=== PATIENT | male | born 1950 | race Caucasian/White ===

== ENCOUNTER → 2017-11-20 07:01 | Outpatient (CLI) | payer MEDICARE, SELFPAY ==
[2017-11-20 07:29] LABS: Add Manual Diff / Slide Review NO; Basophils Percent Auto 0.4 % (0-2); Eosinophils Percent Auto 2.5 % (2-4); Hematocrit 40.5 % (41-53); Hemoglobin 13.8 g/dL (13.5-17.5); Lymphocytes Percent Auto 18.6 % (25-40); Mean Corpuscular HGB Conc 34.2 % (30-36); Mean Corpuscular Hemoglobin 28.3 PG (26-34); Mean Corpuscular Volume 82.8 fL (80-100); Neutrophils Absolute Auto 2400 /uL (3000-5900); Neutrophils Percent Auto 67.5 % (50-75); Red Blood Cell Count 4.89 X10^6/uL (4.5-5.9); White Blood Cell Count 3.6 X10^3/uL (4.5-11.0)
[2017-11-20 07:41] LABS: Platelet Count 69 X10^3/uL (150-400)
[2017-11-20 08:08] LABS: Alanine Aminotransferase 30 IU/L (21-72); Albumin 4.2 g/dL (3.5-5.0); Albumin Globulin Ratio 1.8 (1.0-2.8); Alkaline Phosphatase 45 U/L (38-126); Aspartate Aminotransferase 27 IU/L (17-59); BUN Creatinine Ratio 25.8 (6-22); Bilirubin Total 0.7 mg/dL (0.2-1.3); Blood Urea Nitrogen 31 mg/dL (9-20); Calcium 9.8 mg/dL (8.4-10.2); Carbon Dioxide 30 mmol/L (22-32); Chloride 101 mmol/L (98-107); Cholesterol 127 mg/dL (140-199); Estimated Glomerular Filt Rate > 60.0 mL/min (>60); Globulin 2.4 g/dL (1.7-4.1); Glucose 116 mg/dL (80-110); HDL Cholesterol 36 mg/dL (40-60); HEMOLYSIS < 15 (0-50); LDL Cholesterol Calculated 41 mg/dL (<100); Potassium 4.7 mmol/L (3.4-5.1); Sodium 141 mmol/L (137-145); Total Protein 6.6 g/dL (6.3-8.2); Triglycerides 250 mg/dL (35-150)
== END ==
PROVIDERS: Family Provider Family Medicine; PCP Family Medicine; Visit Provider Family Medicine
DX: I10 Essential (primary) hypertension (principal); E11.9 Type 2 diabetes mellitus without complications; Z79.4 Long term (current) use of insulin; E78.00 Pure hypercholesterolemia, unspecified
CPT/HCPCS: 36415; 80053; 80061; 82043; 82570; 83036; 85025

== ENCOUNTER → 2018-05-08 10:14 | Outpatient (CLI) | payer MEDICARE, SELFPAY ==
[2018-05-08 10:54] LABS: Platelet Count 80 X10^3/uL (150-400)
== END ==
PROVIDERS: Family Provider Student in an Organized Health Care Education/Training Program; PCP Student in an Organized Health Care Education/Training Program; Visit Provider Dermatology MOHS-Micrographic Surgery
DX: D69.3 Immune thrombocytopenic purpura (principal)
CPT/HCPCS: 36415; 85049

== ENCOUNTER → 2019-03-02 11:22 | Outpatient (CLI) | payer MEDICARE, SELFPAY ==
[2019-03-02 12:08] LABS: Hemoglobin 13.8 g/dL (13.5-17.5); Mean Corpuscular HGB Conc 34.4 % (30-36); Mean Corpuscular Hemoglobin 28.3 PG (26-34); Mean Corpuscular Volume 82.2 fL (80-100); Platelet Count 92 X10^3/uL (150-400); Red Blood Cell Count 4.87 X10^6/uL (4.5-5.9); Red Cell Distribution Width 14.7 % (11.6-14.8); White Blood Cell Count 4.8 X10^3/uL (4.5-11.0)
[2019-03-02 12:14] LABS: Hemoglobin A1C% w Est Avg Glu 6.3 % (4.0-6.0)
[2019-03-02 12:46] LABS: Creatinine Urine Random 25.5 mg/dL
[2019-03-02 12:49] LABS: BUN Creatinine Ratio 26.7 (6-22); Blood Urea Nitrogen 24 mg/dL (9-20); Calcium 10.3 mg/dL (8.4-10.2); Carbon Dioxide 23 mmol/L (22-32); Chloride 104 mmol/L (98-107); Estimated Glomerular Filt Rate > 60.0 mL/min (>60); Glucose 105 mg/dL (80-110); HEMOLYSIS < 15 (0-50); Potassium 4.1 mmol/L (3.4-5.1); Sodium 140 mmol/L (137-145)
[2019-03-02 12:52] LABS: Microalbumi Creatinin Ratio Ur 62.7 ug/mg CR (<30)
[2019-03-02 12:53] LABS: Microalbumin Urine Random 1.6 mg/dL (0-1.6)
[2019-03-02 13:18] LABS: Prostate Specific Antigen Scrn 2.32 ng/mL (0.1-4.0)
[2019-03-02 14:36] LABS: Vitamin D 25 Hydroxy (D3) 38.2 ng/mL (30.0-100.0)
== END ==
PROVIDERS: PCP Student in an Organized Health Care Education/Training Program; Visit Provider Student in an Organized Health Care Education/Training Program
DX: I10 Essential (primary) hypertension (principal); E11.9 Type 2 diabetes mellitus without complications; Z79.4 Long term (current) use of insulin; Z12.5 Encounter for screening for malignant neoplasm of prostate; D69.6 Thrombocytopenia, unspecified; E55.9 Vitamin D deficiency, unspecified
CPT/HCPCS: 36415; 80048; 82043; 82306; 82570; 83036; 85027; G0103

== ENCOUNTER → 2019-03-26 15:51 | Outpatient (CLI) | payer MEDICARE, SELFPAY ==
--- NOTE | 2019-03-26 15:54 | DI.ECHO.S_ITS ---
[facility]---------+ [facility] +---------+ : : [address] : [place] [place] : : : : [id number] : : : : Phone: [phone]+ Echocardiogram Report + + :Name: SHYANNE MARVIN Study Date: 03/26/2019 Height: 70 in : :[facility] Exam Location: [facility] Weight: 240 lb : : Gender: Male BSA: 2.3 m2 : :: 1950 Age: 68 yrs BP: 150/92 mmHg: :Reason For Study: Re-evaluate for known valve vegetation : : Performed By: Holli Arzate : :Referring: LEXIE TUTTLE : + + Interpretation Summary 1) Normal left ventricular thickness, size, and systolic function (EF 60-65%). 2) Normal right ventricular size and function. 3) There is a echogenic structure visualized on the mitral valve, mostly involving posterior leaflet and posterior annulus. It is difficult to differentiate between calcification and old vegetation. 4) There is mild mitral stenosis (mean inflow gradient 4mmHg). 5) Hypertension present during the study (BP 150/92mmHg). 6) No prior Echo available for comparison. Procedure: A two-dimensional transthoracic echocardiogram with color flow and Doppler was performed. The study quality was technically adequate. There is no prior echocardiogram noted for this patient. The patient was in normal sinus rhythm during the exam. Left Ventricle: The left ventricle is normal in size. Left ventricular wall thickness is normal. The ejection fraction is estimated to be 60-65%. Left ventricular systolic function is normal. There are no obvious focal wall motion abnormalities noted but poor endocardial definition reduces the sensitivity for the detection of such. Diastolic function could not be accurately assessed due to confounding valvular disease. Right Ventricle: The right ventricle is normal in size and function. Atria: The left atrium is moderately dilated. The right atrium is normal in size. Mitral Valve: The mitral valve leaflets are mildly calcified. There is mild mitral annular calcification. A vegetation on the mitral valve cannot be excluded. There is a echogenic structure visualized on the mitral valve. It is difficult to differentiate between calcification and old vegetation. The mitral valve mean gradient is 4 mmHg. There is mild mitral stenosis. There is mild mitral regurgitation. Aortic Valve: The aortic valve is trileaflet. The aortic valve is mildly calcified. There is no obvious aortic valvular vegetation. There is no aortic valve stenosis. There is trace aortic regurgitation. Tricuspid Valve: The tricuspid valve is not well visualized, but is grossly normal. There is no obvious tricuspid valve vegetation. Pulmonic Valve: The pulmonic valve is not well visualized. Great Vessels: The aortic root is normal size. The ascending aorta is at the upper limits of normal in size. The IVC is of normal diameter and collapses greater than 50% with a sniff. This suggests a low right atrial pressure of 3 mm Hg. Pericardium/ Pleura There is no pericardial effusion. There is an anterior echo-free space consistent with a fat pad. There is no pleural effusion. MMode/2D Measurements & Calculations LVIDd: 5.0 cm LVOT diam: 2.1 cm LVIDs: 2.8 cm Ao root diam: 3.7 cm FS: 43.3 % asc Aorta Diam: 3.8 cm IVSd: 1.0 cm LVPWd: 1.3 cm LV angel. diameter/BSA (cm/m^2): 2.2 LV sys. diameter/BSA (cm/m^2): 1.3 LA A2 area: 20.0 cm2 RA long axis: 5.4 cm LA A4 area: 28.4 cm2 RA area: 13.6 cm2 LA length (vol): 5.5 cm RA vol: 29.2 ml LA vol: 87.7 ml RA : 12.9 ml/m2 LA vol index: 38.9 ml/m2 TAPSE: 1.7 cm Doppler Measurements & Calculations Ao V2 max: 159.9 cm/sec LVOT Max William: 117.8 cm/sec Ao V2 mean: 112.9 cm/sec LV V1 max P.6 mmHg Ao max P.2 mmHg LV V1 VTI: 23.2 cm Ao mean P.4 mmHg JOS(I,D): 2.8 cm2 Ao V2 VTI: 28.8 cm JOS(V,D): 2.5 cm2 sev ratio: 0.80 JOS indexed to BSA (cm^2/m^2): 1.2 MV E max william: 122.0 cm/sec PA V2 max: 94.0 cm/sec MV A max william: 133.8 cm/sec PA V2 mean: 58.9 cm/sec MV E/A: 0.91 PA mean P.7 mmHg Med Peak E' William: 4.9 cm/sec PA pr(Accel): 26.6 mmHg E/E' med: 24.6 Lat Peak E' William: 10.1 cm/sec E/E' lat: 12.1 E/e' average: 18.4 MV dec time: 0.35 sec MVA(VTI): 2.2 cm2 MV V2 mean: 89.8 cm/sec SV(LVOT): 79.2 ml MV mean P.5 mmHg MV V2 VTI: 35.9 cm Reading Physician:03:22 PM
== END ==
PROVIDERS: PCP Student in an Organized Health Care Education/Training Program; Visit Provider Student in an Organized Health Care Education/Training Program
DX: I33.0 Acute and subacute infective endocarditis (principal); I34.0 Nonrheumatic mitral (valve) insufficiency
CPT/HCPCS: 93306

== ENCOUNTER → 2019-10-18 11:54 | Outpatient (CLI) | payer MEDICARE, SELFPAY ==
[2019-10-18 13:34] LABS: Hemoglobin A1C% w Est Avg Glu 5.7 % (4.0-6.0)
[2019-10-18 15:41] LABS: Creatinine Urine Random 35.9 mg/dL
[2019-10-18 15:46] LABS: Microalbumi Creatinin Ratio Ur 52.9 ug/mg CR (<30); Microalbumin Urine Random 1.9 mg/dL (0-1.6)
== END ==
PROVIDERS: PCP Student in an Organized Health Care Education/Training Program; Referring Provider Student in an Organized Health Care Education/Training Program; Visit Provider Student in an Organized Health Care Education/Training Program
DX: E11.9 Type 2 diabetes mellitus without complications (principal); I10 Essential (primary) hypertension; Z79.4 Long term (current) use of insulin
CPT/HCPCS: 36415; 82043; 82570; 83036

== ENCOUNTER → 2020-07-24 07:28 | Outpatient (CLI) | payer MEDICARE, SELFPAY ==
[2020-07-24 09:11] LABS: Alanine Aminotransferase 24 IU/L (<50); Albumin 4.3 g/dL (3.5-5.0); Albumin Globulin Ratio 1.7 (1.0-2.8); Alkaline Phosphatase 76 U/L (38-126); Aspartate Aminotransferase 28 IU/L (17-59); BUN Creatinine Ratio 28.4 (6-22); Bilirubin Total 0.6 mg/dL (0.2-1.3); Blood Urea Nitrogen 25 mg/dL (9-20); Calcium 10.3 mg/dL (8.4-10.2); Carbon Dioxide 27 mmol/L (22-32); Chloride 103 mmol/L (98-107); Estimated Glomerular Filt Rate > 60.0 mL/min (>60); Globulin 2.6 g/dL (1.7-4.1); Glucose 173 mg/dL (80-110); HEMOLYSIS < 15 (0-50); Potassium 4.7 mmol/L (3.4-5.1); Sodium 139 mmol/L (137-145); Total Protein 6.9 g/dL (6.3-8.2)
== END ==
PROVIDERS: PCP Student in an Organized Health Care Education/Training Program; Referring Provider Nurse Practitioner Adult Health; Visit Provider Nurse Practitioner Adult Health
DX: B35.1 Tinea unguium (principal)
CPT/HCPCS: 36415; 80053

== ENCOUNTER → 2020-08-22 15:42 | Outpatient (CLI) | payer MEDICARE, SELFPAY ==
[2020-08-22 17:25] LABS: Hemoglobin A1C% w Est Avg Glu 6.3 % (4.0-6.0)
[2020-08-22 17:41] LABS: Prostate Specific Antigen Scrn 2.71 ng/mL (0.1-4.0)
[2020-08-22 17:55] LABS: Creatinine Urine Random 43.1 mg/dL
[2020-08-22 17:59] LABS: Microalbumi Creatinin Ratio Ur 90.4 ug/mg CR (<30); Microalbumin Urine Random 3.9 mg/dL (0-1.6)
== END ==
PROVIDERS: PCP Student in an Organized Health Care Education/Training Program; Referring Provider Student in an Organized Health Care Education/Training Program; Visit Provider Student in an Organized Health Care Education/Training Program
DX: Z12.5 Encounter for screening for malignant neoplasm of prostate (principal); E11.9 Type 2 diabetes mellitus without complications; R80.9 Proteinuria, unspecified; Z79.4 Long term (current) use of insulin
CPT/HCPCS: 36415; 82043; 82570; 83036; G0103

== ENCOUNTER → 2021-05-14 08:56 | Outpatient (CLI) | payer MEDICARE, SELFPAY ==
[2021-05-14 11:13] LABS: BUN Creatinine Ratio 32.9 (6-22); Blood Urea Nitrogen 28 mg/dL (9-20); Estimated Glomerular Filt Rate > 60.0 mL/min (>60)
[2021-05-14 11:15] LABS: Hemoglobin A1C% w Est Avg Glu 6.3 % (4.0-6.0)
== END ==
PROVIDERS: PCP Student in an Organized Health Care Education/Training Program; Referring Provider Student in an Organized Health Care Education/Training Program; Visit Provider Student in an Organized Health Care Education/Training Program
DX: E11.9 Type 2 diabetes mellitus without complications (principal); I10 Essential (primary) hypertension; Z79.4 Long term (current) use of insulin
CPT/HCPCS: 36415; 82565; 83036; 84520

== ENCOUNTER → 2022-11-07 06:54 | Outpatient (CLI) | payer MEDICARE, SELFPAY ==
[2022-11-07 08:05] LABS: Add Manual Diff / Slide Review NO; Basophils Absolute Auto 0 /uL (0-100); Basophils Percent Auto 0.3 % (0-2); Eosinophils Absolute Auto 100 /uL (0-450); Eosinophils Percent Auto 2.5 % (2-4); Hematocrit 38.5 % (41-53); Lymphocytes Absolute Auto 500 /uL (1100-4500); Lymphocytes Percent Auto 15.6 % (25-40); Mean Corpuscular HGB Conc 33.8 % (30-36); Mean Corpuscular Hemoglobin 27.8 PG (26-34); Mean Corpuscular Volume 82.3 fL (80-100); Monocytes Absolute Auto 400 /uL (0-900); Monocytes Percent Auto 11.3 % (3-14); Neutrophils Absolute Auto 2400 /uL (1500-7000); Neutrophils Percent Auto 70.3 % (50-75); Platelet Count 53 X10^3/uL (150-400); Red Blood Cell Count 4.68 X10^6/uL (4.5-5.9); Red Cell Distribution Width 15.5 % (11.6-14.8); White Blood Cell Count 3.5 X10^3/uL (4.5-11.0)
[2022-11-07 08:31] LABS: Alanine Aminotransferase 25 IU/L (<50); Albumin 4.1 g/dL (3.5-5.0); Albumin Globulin Ratio 1.4 (1.0-2.8); Alkaline Phosphatase 71 U/L (38-126); Aspartate Aminotransferase 29 IU/L (17-59); BUN Creatinine Ratio 28.4 (6-22); Bilirubin Total 0.7 mg/dL (0.2-1.3); Blood Urea Nitrogen 25 mg/dL (9-20); Carbon Dioxide 27 mmol/L (22-32); Chloride 102 mmol/L (98-107); Cholesterol 123 mg/dL (140-199); Estimated Glomerular Filt Rate > 60 mL/min (>60); Globulin 2.9 g/dL (1.7-4.1); Glucose 130 mg/dL (80-110); HDL Cholesterol 36 mg/dL (40-60); HEMOLYSIS < 15 (0-50); LDL Cholesterol Calculated 47 mg/dL (<100); Potassium 4.4 mmol/L (3.4-5.1); Sodium 137 mmol/L (137-145); Triglycerides 200 mg/dL (35-150)
[2022-11-07 08:59] LABS: Prostate Specific Antigen Scrn 3.67 ng/mL (0.1-4.0); TSH w/ Reflex to FT4 1.79 uIU/mL (0.47-4.68)
[2022-11-08 04:30] LABS: Labcorp Hemoglobin (Hb) A1c 6.1 % (4.8-5.6)
== END ==
PROVIDERS: PCP Student in an Organized Health Care Education/Training Program; Referring Provider Pediatrics; Visit Provider Pediatrics
DX: Z12.5 Encounter for screening for malignant neoplasm of prostate (principal); I10 Essential (primary) hypertension; E78.00 Pure hypercholesterolemia, unspecified; D69.6 Thrombocytopenia, unspecified; E11.9 Type 2 diabetes mellitus without complications; Z79.4 Long term (current) use of insulin; Z00.00 Encounter for general adult medical examination without abnormal findings; Z95.1 Presence of aortocoronary bypass graft
CPT/HCPCS: 36415; 80053; 80061; 83036; 84443; 85025; G0103

== ENCOUNTER → 2023-07-21 07:19 | Outpatient (CLI) | payer MEDICARE, SELFPAY ==
[2023-07-21 08:17] LABS: Add Manual Diff / Slide Review NO; Basophils Absolute Auto 0 /uL (0-100); Basophils Percent Auto 0.4 % (0-2); Eosinophils Absolute Auto 100 /uL (0-450); Eosinophils Percent Auto 1.8 % (2-4); Hematocrit 37.8 % (41-53); Hemoglobin 12.5 g/dL (13.5-17.5); Lymphocytes Absolute Auto 600 /uL (1100-4500); Lymphocytes Percent Auto 17.3 % (25-40); Mean Corpuscular HGB Conc 33.1 % (30-36); Mean Corpuscular Hemoglobin 26.8 PG (26-34); Monocytes Absolute Auto 300 /uL (0-900); Monocytes Percent Auto 10.2 % (3-14); Neutrophils Absolute Auto 2400 /uL (1500-7000); Neutrophils Percent Auto 70.3 % (50-75); Platelet Count 59 X10^3/uL (150-400); Red Blood Cell Count 4.67 X10^6/uL (4.5-5.9); Red Cell Distribution Width 16.1 % (11.6-14.8); White Blood Cell Count 3.4 X10^3/uL (4.5-11.0)
[2023-07-21 08:24] LABS: Hemoglobin A1C% w Est Avg Glu 6.2 % (4.0-6.0)
[2023-07-21 08:29] LABS: Alanine Aminotransferase 20 IU/L (<50); Albumin Globulin Ratio 1.3 (1.0-2.8); Alkaline Phosphatase 77 U/L (38-126); Aspartate Aminotransferase 30 IU/L (17-59); BUN Creatinine Ratio 28.2 (6-22); Bilirubin Total 0.9 mg/dL (0.2-1.3); Blood Urea Nitrogen 24 mg/dL (9-20); Calcium 9.3 mg/dL (8.4-10.2); Carbon Dioxide 26 mmol/L (22-32); Chloride 105 mmol/L (98-107); Cholesterol 134 mg/dL (140-199); Estimated Glomerular Filt Rate > 60 mL/min (>60); Glucose 124 mg/dL (80-110); HDL Cholesterol 38 mg/dL (40-60); HEMOLYSIS < 15 (0-50); LDL Cholesterol Calculated 55 mg/dL (<100); Potassium 3.9 mmol/L (3.4-5.1); Sodium 138 mmol/L (137-145); Triglycerides 203 mg/dL (35-150)
[2023-07-21 09:22] LABS: Microalbumi Creatinin Ratio Ur 31.1 ug/mg CR (<30); Microalbumin Urine Random 2.4 mg/dL (0-1.6)
[2023-07-21 16:23] LABS: Hep C Virus Ab w/Reflex Quant NEGATIVE s/c (NEGATIVE)
== END ==
PROVIDERS: PCP Family Medicine; Referring Provider Family Medicine; Visit Provider Family Medicine
DX: E11.9 Type 2 diabetes mellitus without complications (principal); Z79.4 Long term (current) use of insulin; I10 Essential (primary) hypertension; E78.00 Pure hypercholesterolemia, unspecified; Z11.59 Encounter for screening for other viral diseases; R73.9 Hyperglycemia, unspecified
CPT/HCPCS: 36415; 80053; 80061; 82043; 82570; 83036; 85025; 86803

== ENCOUNTER 2024-12-30 15:37 | Emergency (ER) | payer MEDICARE, SELFPAY ==
[2024-12-30 15:45] VITALS: BP 144/73; PULSE 85; RESP 16; TEMP 36.5; O2SAT 96; BMI 35.9
--- NOTE | 2024-12-30 16:05 | ED_ITS ---
HPI - Fall <Caity Greene PA-C - Last Filed: 12/30/24 19:15> General Chief Complaint: Fall Stated Complaint: fell, right arm injury Time Seen by Provider: 12/30/24 16:05 Source: patient Mode of arrival: Ambulatory History of Present Illness HPI Narrative: Mr. Ronquillo is a very pleasant 74-year-old male with a past medical history of insulin-dependent T2 DM, HTN, CAD s/p CABG, anemia, thrombocytopenia who prese nts to the emergency department with his for right arm pain and open wound after a fall that occurred prior to arrival. Patient states that he was bending over picking up apples when he started to fall forward so he stumbled over to a wall in order to avoid hitting his face and instead scraped the entire lateral aspect of the right forearm on the brick wall. Patient did not hit his head. H e did sustain a superficial abrasion on the right anterior ribcage. Patient states he has very minimal pain, declines need for pain medication, reports some discomfort with range of motion of the right wrist and some pain with laughing in the right ribcage. He does not take any blood thinners except for baby aspirin. Denies headache, neck pain, back pain, chest pain, abdominal pain, shortness of breath, lower extremity pain. His Tdap was in 2019. He is ambulatory. Related Data Previous Rx's ?Medication ?Instructions ?Recorded syringe with needle #400 ea 03/08/19 Glucose: Test Strips #400 ea 07/01/22 Syringes #250 ea 03/12/24 simvastatin 20 mg tablet 20 mg PO ONCE PM #90 tabs metformin 500 mg tablet 500 mg PO BID #180 tabs 09/26 trazodone 100 mg tablet 100 mg PO ONCE PM #90 tabs 0 10/05/24 lisinopril 20 mg tablet 40 mg (2 x 20 mg) PO DAILY # 180 11/03/24 tabs potassium chloride 10 mEq 10 meq PO DAILY #90 tabs 01/20 tablet,extended release furosemide 20 mg tablet 20 mg PO DAILY #90 tabs 10/26 metoprolol tartrate 25 mg tablet 25 mg PO DAILY #90 ta bs 11/04/24 insulin glargine 100 unit/mL 40 unit (0.4 mL) SUBCUT D AILY #40 11/10/24 subcutaneous solution (Lantus mL U-100 Insulin) insulin lispro 100 unit/mL 10 unit (0.1 mL) SUBCUT subcutaneous solution (Humalog USEASDIRECTD #50 mL U-100 Insulin) cephalexin 500 mg capsule 500 mg PO TID 5 days #15 cap s 12/30/24 hydrocodone 5 mg-acetaminophen 325 1 tab PO BID PRN pa in #10 tabs 12/30/24 mg tablet Allergies Allergy/AdvReac Type Severity Reaction Status Date / Time No Known Drug Allergies Allergy Verified 06/26/23 07:55 Review of Systems <Caity Greene PA-C - Last Filed: 12/30/24 19:15> Review of Systems ROS Unobtainable: All systems reviewed & are unremarkable except as noted in HPI and below Patient History <Caity Greene PA-C - Last Filed: 12/30/24 19:15> Medical History Ankle fracture (~1998) Skin cancer Thrombocytopenia (~2006) Liver cirrhosis secondary to [place]MER[place] (Unknown) Measles Mumps Diabetes (Unknown) Hypertension (Unknown) Hyperlipemia (Unknown) Type 2 diabetes mellitus without complication, with long-term current use of insulin (07/09/16) Renal cyst (07/09/16) Steatosis of liver (07/09/16) Multiple actinic keratoses (07/09/16) Thrombocytopenia (02/02/16) Varicose veins of both lower extremities (02/02/16) Pure hypercholesterolemia (01/15/16) Primary insomnia (01/15/16) Essential hypertension (01/15/16) Surgical History Anesthesia S/P coronary artery bypass graft x 3 (~05/29/06) Hx of coronary artery bypass graft (2002) Family History Father Diabetes mellitus Mother No problems noted. Sister Diabetes mellitus Social History alcohol intake: current (social) substance use type: does not use Exam <Caity Greene PA-C - Last Filed: 12/30/24 19:15> Narrative Exam Narrative: GENERAL: 74 year old patient appears stated age. Well-developed patient, in no acute distress. HEAD: Atraumatic. Normocephalic. EYES: No scleral icterus. No injection or drainage. NECK: Trachea midline. Cervical ROM intact. CARDIOVASCULAR: Regular rate and rhythm. There is a superficial abrasion across the right anterior lower ribcage, patient denies any tenderness to palpation of the bilateral anterior lateral or posterior ribcage. RESPIRATORY: ?Nonlabored respirations. ?Speaking in clear, full sentences. Breath sounds equal bilaterally. GASTROINTESTINAL: Abdomen soft, non-tender, nondistended. EXTREMITIES: On the lateral aspect of the right forearm patient has a skin tear of the entire area. Bleeding is controlled with direct pressure. There is no deep laceration. Patient reports subjective pain with radial and ulnar deviation of the wrist, no focal tenderness, no snuffbox tenderness, no deformity. No pain with range of motion or tenderness of right elbow. Remainder of appendicular skeleton nontender, no lower extremity wounds. BACK: No midline tenderness. NEURO: AOx3. ?Clear speech. ?Moves all 4 extremities appropriately. SKIN: Right forearm skin tear described above. Otherwise skin is warm and dry. Initial Vital Signs Initial Vital Signs: Vital Signs Temperature 97.7 F 12/30/24 15:45 Pulse Rate 85 12/30/24 15:45 Respiratory Rate 16 12/30/24 15:45 Blood Pressure 144/73 H 12/30/24 15:45 Pulse Oximetry 96 12/30/24 15:45 Oxygen Delivery Method Room Air 12/30/24 15:45 <Monroe German MD - Last Filed: 12/31/24 08:39> Initial Vital Signs Initial Vital Signs: Vital Signs Temperature 97.7 F 12/30/24 15:45 Pulse Rate 85 12/30/24 15:45 Respiratory Rate 16 12/30/24 15:45 Blood Pressure 144/73 H 12/30/24 15:45 Pulse Oximetry 96 12/30/24 15:45 Oxygen Delivery Method Room Air 12/30/24 15:45 Course <Caity Greene PA-C - Last Filed: 12/30/24 19:15> Orders Ordered: Discontinued Medications Hydrocodone Bitart/Acetaminophen (Hydrocodone/Acet 5/325 Tablet) 1 tab PO NOW ONE Stop: 12/30/24 16:36 Last Admin: 12/30/24 16:59 Dose: 1 tab Documented By: RB Bacitracin (Bacitracin Oint 0.9 Gm Pckt) 2 applic TOP NOW ONE Stop: 12/30/24 16:23 Last Admin: 12/30/24 16:51 Dose: 2 applic Documented By: RB Cephalexin HCl (Cephalexin 250 Mg Capsule) 500 mg PO NOW ONE Stop: 12/30/24 16:23 Last Admin: 12/30/24 16:51 Dose: 500 mg Documented By: RB Diphtheria/Tetanus/Acell Pertussis (Tet,Diph,Pertuss(Acell),Vac/Pf 0.5 Ml Syringe) 0.5 ml IM .ONCE ONE Stop: 12/30/24 16:23 Last Admin: 12/30/24 16:51 Dose: 0.5 ml Documented By: RB Vital Signs Vital signs: Vital Signs - 8 hr 12/30/24 15:45 12/30/24 17:56 Temperature 97.7 F 98.0 F Pulse Rate 85 78 Respiratory Rate 16 18 Blood Pressure 144/73 H 137/66 Pulse Oximetry 96 95 Oxygen Delivery Method Room Air Room Air <Monroe German MD - Last Filed: 12/31/24 08:39> Orders Ordered: Discontinued Medications Hydrocodone Bitart/Acetaminophen (Hydrocodone/Acet 5/325 Tablet) 1 tab PO NOW ONE Stop: 12/30/24 16:36 Last Admin: 12/30/24 16:59 Dose: 1 tab Documented By: BRAYDEN Bacitracin (Bacitracin Oint 0.9 Gm Pckt) 2 applic TOP NOW ONE Stop: 12/30/24 16:23 Last Admin: 12/30/24 16:51 Dose: 2 applic Documented By: RB Cephalexin HCl (Cephalexin 250 Mg Capsule) 500 mg PO NOW ONE Stop: 12/30/24 16:23 Last Admin: 12/30/24 16:51 Dose: 500 mg Documented By: RB Diphtheria/Tetanus/Acell Pertussis (Tet,Diph,Pertuss(Acell),Vac/Pf 0.5 Ml Syringe) 0.5 ml IM .ONCE ONE Stop: 12/30/24 16:23 Last Admin: 12/30/24 16:51 Dose: 0.5 ml Documented By: RB Vital Signs Vital signs: Vital Signs - 8 hr 12/30/24 15:45 12/30/24 17:56 Temperature 97.7 F 98.0 F Pulse Rate 85 78 Respiratory Rate 16 18 Blood Pressure 144/73 H 137/66 Pulse Oximetry 96 95 Oxygen Delivery Method Room Air Room Air MDM - Fall <Caity Ruiz NOEL Greene - Last Filed: 12/30/24 19:15> Medical Records Attestation: I reviewed the patient's medical records. Imaging Data Right Forearm XR: Radiologist's Impression: PROCEDURE: XR FOREARM RT 2V INDICATIONS: fall; large R forearm wound TECHNIQUE: 2 views of the forearm were acquired. COMPARISON: None. FINDINGS: Bones: No fractures or dislocations. No suspicious bony lesions. Soft tissues: No suspicious soft tissue calcifications or masses. Skin laceration to the dorsal forearm. IMPRESSION: No acute bony abnormality. Dictated by: Fernandez Thompson M.D. on 12/30/2024 at 16:53 Approved by: Fernandez Thompson M.D. on 12/30/2024 at 16:54 Right Wrist XR: Radiologist's Impression: PROCEDURE: XR WRIST RT MIN 3V INDICATIONS: fall; pain w wrist ROM; large R forearm wound TECHNIQUE: 4 views of the wrist were acquired. COMPARISON: None. FINDINGS: Bones: No fractures or dislocations. No suspicious bony lesions. Surgical fusion of the scaphoid. 1st CMC joint space narrowing with associated osteophytosis and sclerosis. Radiocarpal joint space narrowing. Soft tissues: No suspicious soft tissue calcifications. IMPRESSION: No acute bony abnormality. Dictated by: Fernandez Thompson M.D. on 12/30/2024 at 17:00 Approved by: Fernandez Thompson M.D. on 12/30/2024 at 17:00 Chest & Ribs XR: Radiologist's Impression: PROCEDURE: XR RIBS RT MIN 3V W CXR 1V INDICATIONS: fall; R anterior rib pain TECHNIQUE: 2 views of the ribs were acquired, along with a single view chest. COMPARISON: None. FINDINGS: Surgical changes and devices: Sternotomy. Surgical clips project over the mediastinum and left upper quadrant. Bones and chest wall: No fractures or dislocations. No suspicious bony l esions. Overlying soft tissues appear unremarkable. Lungs and pleura: No pleural effusions or pneumothorax. Lungs appear clear. Mediastinum: Mediastinal contours appear normal. Heart size is normal. IMPRESSION: No displaced rib fracture or pneumothorax. Dictated by: Fernandez Thompson M.D. on 12/30/2024 at 16:54 Approved by: Fernandez Thompson M.D. on 12/30/2024 at 16:54 [facility] Narrative Medical decision making narrative: 74-year-old male with a past medical history of insulin-dependent T2 DM, HTN, CAD s/p CABG, anemia, thrombocytopenia who presents to the emergency department with his for right arm pain and open wound after a fall that occurred prior to arrival. Differential diagnosis includes but is not limited to right arm sprain, strain, fracture, dislocation, skin tear, laceration, right rib fracture, contusion, etc. On exam patient is in no acute distress, nontoxic appearing, vital signs appropriate. He did not hit his head. He has not on blood thinners but does take aspirin. He has a large skin tear of the entire right lateral forearm. He has a superficial abrasion on the right chest wall. Otherwise no other wounds. Declines need for pain medication. We will update Tdap, irrigate and cleanse wound and reapproximate skin tear edges using bacitracin and Xeroform and apply nonadherent dressing. We will obtain x-ray imaging of forearm wrist and ribs. Right forearm wound was extensively irrigated with diluted Betadine, skin tear edges were approximated as best as possible, bacitracin, Xeroform, Kerlix, Aaron wrap were then applied to the wound. Patient tolerated the wound care procedure well. Tdap and 1st dose of Keflex given in the ED. X-rays reveal no acute fractures. Respiratory therapy did meet with the patient and discussed incentive spirometry. Discussed daily wound care with the patient and his . He was prescribed short course of antibiotics, discussed signs and symptoms of wound infection. Discussed ED return precautions follow up with PCP. Patient verbalized understanding of all information is agreeable with the plan, all questions answered, ambulatory and stable for discharge home. Discharge Plan Departure Patient Disposition: Home Clinical Impression: Skin tear of right upper extremity, Rib pain on right side Fall Qualifiers: Encounter type: initial encounter Qualified Code(s): W19.XXXA - Unspecified fall, initial encounter Instructions: DI for Avulsion Laceration (Not Requiring Sutures) Activity Restrictions/Additional Instructions: Dear Mr. Ronquillo, Thank you for coming to the emergency department. Today you were evaluated for injury to the right arm. X-ray showed no broken bones in the right arm or the ribs. You were given 1st dose of antibiotics in your tetanus shot was updated. I would like you to keep the wound dressing in place for the next 24 hours. After this time, please remove the dressing entirely, gently clean the area with warm soapy water, then reapply bacitracin/antibiotic ointment/Vaseline/Aquaphor and the provided Xeroform. Please continue cleaning the wound at least once daily and applying ointment and a dressing every single day until it has completely healed. Please follow up with your primary care doctor. Please return to ER immediately if you develop fevers, chills, increased redness or other signs concerning for infection of the arm. You have been prescribed a short course of hydrocodone- acetaminophen pain medication, I would like you to take this medication 30 minutes to 1 hour before washing your wound to help with the pain. You have been prescribed a short course of narcotic medications. These are potentially dangerous and addictive medications that should be used carefully. While on these medications you cannot drive or operate heavy machinery. Additionally, you cannot sign legal documents or perform any duties such as this. Many people get constipated on narcotic medications so it would be advisable to discuss stool softeners with the pharmacist when you pharmacy picking technician your prescription. Please understand that we cannot provide further refills of narcotics or co ntrolled substances through the ED and your pain management will need to be through your Primary Care Provider Please follow up with your primary care doctor within the next 2-3 days for ER follow-up. (If you do not have a PCP you can call [phone]. ?to schedule an appointment with an [facility] Primary Care Provider) IF YOU DEVELOP ANY NEW OR WORSENING SYMPTOMS, RETURN TO THE ER! Please read the attached instructions, they highlight more specific treatments and interventions for you at home. Thank you for letting me participate in your care, Caity Greene PA-C Prescriptions: New cephalexin 500 mg capsule 500 mg PO TID 5 Days Qty: 15 0RF hydrocodone-acetaminophen 5-325 mg tablet 1 tab PO BID PRN (Reason: pain) Qty: 10 0RF No Action (DME) syringe with needle Qty: 400 3RF Dose Instruction: As directed Rx Instructions: Use one 0.5cc syringe with 8mm needle to inject insulin four times a day. (DME) Glucose: Test Strips See Rx Instructions .Route .MEDSUPPLY Qty: 400 3RF Rx Instructions: Use one accuchek apryl test strip to check blood sugar four times a day. (DME) Syringes 0 .Route .MEDSUPPLY Qty: 250 3RF Dose Instruction: As directed Rx Instructions: diabetic insulin syringes, 31G 0.5ml 8mm, use to inject insulin four times daily simvastatin 20 mg tablet 20 mg PO ONCE PM Qty: 90 3RF metformin 500 mg tablet 500 mg PO BID Qty: 180 0RF Rx Instructions: NEEDS APPOINTMENT BEFORE FURTHER REFILLS CAN BE SENT trazodone 100 mg tablet 100 mg PO ONCE PM Qty: 90 0RF lisinopril 20 mg tablet 40 mg PO DAILY Qty: 180 1RF potassium chloride 10 mEq tablet extended release 10 meq PO DAILY Qty: 90 1RF metoprolol tartrate 25 mg tablet 25 mg PO DAILY Qty: 90 1RF furosemide 20 mg tablet 20 mg PO DAILY Qty: 90 1RF insulin lispro [Humalog U-100 Insulin] 100 unit/mL solution 10 unit SUBCUT USEASDIRECTD MDD 50 units daily Qty: 50 1RF Rx Instructions: Inject 10 Units before meals Lantus U-100 Insulin 100 unit/mL solution 40 unit SUBCUT DAILY Qty: 40 1RF Referrals: Jaron Rosa MD [Primary Care Provider, Family Practice] Stand Alone Forms: Patient Portal/API ED Sign-out <Monroe German MD - Last Filed: 12/31/24 08:39> Cosign ED Attending Cosignature Attestation: Physician attestation: I was readily available for consultation at all times. I agree with assessment and plan of care. Monroe German MD
--- NOTE | 2024-12-30 16:22 | DI.RAD.S_ITS ---
PROCEDURE: XR RIBS RT MIN 3V W CXR 1V INDICATIONS: fall; R anterior rib pain TECHNIQUE: 2 views of the ribs were acquired, along with a single view chest. COMPARISON: None. FINDINGS: Surgical changes and devices: Sternotomy. Surgical clips project over the mediastinum and left upper quadrant. Bones and chest wall: No fractures or dislocations. No suspicious bony lesions. Overlying soft tissues appear unremarkable. Lungs and pleura: No pleural effusions or pneumothorax. Lungs appear clear. Mediastinum: Mediastinal contours appear normal. Heart size is normal. IMPRESSION: No displaced rib fracture or pneumothorax. Dictated by: Fernandez Thompson M.D. on 12/30/2024 at 16:54 Approved by: Fernandez Thompson M.D. on 12/30/2024 at 16:54
--- NOTE | 2024-12-30 16:22 | DI.RAD.S_ITS ---
PROCEDURE: XR FOREARM RT 2V INDICATIONS: fall; large R forearm wound TECHNIQUE: 2 views of the forearm were acquired. COMPARISON: None. FINDINGS: Bones: No fractures or dislocations. No suspicious bony lesions. Soft tissues: No suspicious soft tissue calcifications or masses. Skin laceration to the dorsal forearm. IMPRESSION: No acute bony abnormality. Dictated by: Fernandez Thompson M.D. on 12/30/2024 at 16:53 Approved by: Fernandez Thompson M.D. on 12/30/2024 at 16:54
--- NOTE | 2024-12-30 16:22 | DI.RAD.S_ITS ---
PROCEDURE: XR WRIST RT MIN 3V INDICATIONS: fall; pain w wrist ROM; large R forearm wound TECHNIQUE: 4 views of the wrist were acquired. COMPARISON: None. FINDINGS: Bones: No fractures or dislocations. No suspicious bony lesions. Surgical fusion of the scaphoid. 1st CMC joint space narrowing with associated osteophytosis and sclerosis. Radiocarpal joint space narrowing. Soft tissues: No suspicious soft tissue calcifications. IMPRESSION: No acute bony abnormality. Dictated by: Fernandez Thompson M.D. on 12/30/2024 at 17:00 Approved by: Fernandez Thompson M.D. on 12/30/2024 at 17:00
[2024-12-30] MEDS: BACITRACIN OINT 0.9 GM PCKT 2 APPLIC TOP (16:51)
[2024-12-30] MEDS: TET,DIPH,PERTUSS(ACELL),VAC/PF 0.5 ML SYRINGE IM (16:51)
[2024-12-30 17:56] VITALS: BP 137/66; PULSE 78; RESP 18; TEMP 36.7; O2SAT 95
== END 2024-12-30 18:04 | disposition home or self-care (01) ==
PROVIDERS: Emergency Provider Physician Assistant; PCP Family Medicine
DX: S41.111A Laceration without foreign body of right upper arm, initial encounter (principal); R07.81 Pleurodynia; W18.30XA Fall on same level, unspecified, initial encounter; Z79.82 Long term (current) use of aspirin; Z23 Encounter for immunization
CPT/HCPCS: 71101; 73090; 73110; 90471; 99283; 90715